=== PATIENT | male | born 1970 | race Hispanic/Latino ===

== ENCOUNTER 2017-04-30 11:00 | Emergency (ER) | payer MEDICAID ==
[2017-04-30 11:01] VITALS: BMI 26.6
[2017-04-30 11:22] VITALS: RESP 18; TEMP 98
[2017-04-30] MEDS ORDERED: Sodium Chloride 0.9% 1,000 ML IV STA (11:30)
[2017-04-30 12:02] LABS: BASO # 0.02 K/mm3 (0.0-2.0); BASO % 0.3 % (0.0-3.0); EOS # 0.1 (0.0-0.7); EOS % 1.7 % (1.5-5.0); GRAN # 5.16 (1.4-6.5); GRAN % 66.9 % (50.0-68.0); LYMPH % 25.4 % (22.0-35.0); MEAN CELL VOLUME 92.6 fl (80.0-105.0); MEAN CORPUSCULAR HEMOGLOBIN 32.2 pg (25.0-35.0); MEAN CORPUSCULAR HGB CONC 34.7 g/dl (31.0-37.0); MEAN PLATELET VOLUME 9.1 fl (7.0-11.0); MONO # 0.4 (0.1-0.6); MONO % 5.7 % (1.0-6.0); RBC 4.35 10^6/uL (3.5-6.1); RED CELL DISTRIBUTION WIDTH 12.8 % (11.5-14.5); WHITE BLOOD COUNT 7.7 10^3/ul (4.5-11.0)
[2017-04-30 12:08] LABS: ALB/GLOB RATIO 1.2 (1.1-1.8); ALBUMIN 3.8 g/dL (3.0-4.8); ALT/SGPT 28 U/L (7-56); AST/SGOT 20 U/L (17-59); BLOOD UREA NITROGEN 10 mg/dL (7-21); CALCIUM 9.2 mg/dL (8.4-10.5); GFR AFRICAN-AMERICAN > 60; GFR NON-AFRICAN AMERICAN > 60; LIPASE 37 U/L (23-300)
--- NOTE | 2017-04-30 12:44 | CT ---
PROCEDURE: CT Abdomen and Pelvis without intravenous contrast HISTORY: right flank pain COMPARISON: None. TECHNIQUE: Without contrast. Contrast Dose: Without contrast Radiation dose: Total exam DLP = Total exam DLP = 245 mGy-cm. This CT exam was performed using one or more of the following dose reduction techniques: Automated exposure control, adjustment of the mA and/or kV according to patient size, and/or use of iterative reconstruction technique. FINDINGS: LOWER THORAX: Unremarkable. LIVER: Unremarkable. No gross lesion or ductal dilatation. GALLBLADDER AND BILE DUCTS: Unremarkable. PANCREAS: Unremarkable. No gross lesion or ductal dilatation. SPLEEN: Unremarkable. ADRENALS: Unremarkable. No mass. KIDNEYS AND URETERS: Unremarkable. No hydronephrosis. No solid mass. VASCULATURE: Unremarkable. No aortic aneurysm. BOWEL: Unremarkable. No obstruction. No gross mural thickening. APPENDIX: Unremarkable. Normal appendix. PERITONEUM: There is a small amount of fluid in the pelvis. Etiology and significance uncertain LYMPH NODES: Unremarkable. No enlarged lymph nodes. BLADDER: Unremarkable. REPRODUCTIVE: Unremarkable. BONES: There is a pectus deformity of the lower sternum on the right OTHER FINDINGS: None. IMPRESSION: No acute intra-abdominal findings
[2017-04-30 13:29] VITALS: BP 128/76; PULSE 58; O2SAT 100
--- NOTE | 2017-04-30 15:17 | ED PDOC ---
Arrival/HPI - General Chief Complaint: Back Pain Time Seen by Provider: 04/30/17 11:30 Historian: Patient - History of Present Illness Narrative History of Present Illness (Text): 04/30/17 15:17 A 47 year old male presents to the emergency department complaining of persistent lower back pain for 3 weeks. Patient notes mild nausea and a few episodes of non-bilious non-bloody vomiting for the past 3-4 days. Patient reports he was seen by his PMD for same complaints and had a negative work up. Patient denies any recent trauma, injury, fever, chills, appetite changes, diarrhea, abdominal pain, urinary symptoms. chest pain, shortness of breath or any other complaints. Time/Duration: Other (3 weeks) Symptom Course: Unchanged Quality: Other Context: Home Past Medical History - Provider Review Nursing Documentation Reviewed: Yes - Cardiac Hx Cardiac Disorders: No - Pulmonary Hx Respiratory Disorders: No - Neurological Hx Neurological Disorder: No - HEENT Hx HEENT Disorder: Yes - Renal Hx Renal Disorder: No - Endocrine/Metabolic Hx Endocrine Disorders: No - Hematological/Oncological Hx Blood Disorders: No - Integumentary Hx Dermatological Disorder: No - Musculoskeletal/Rheumatological Hx Musculoskeletal Disorders: No - Gastrointestinal Hx Gastrointestinal Disorders: No - Genitourinary/Gynecological Hx Genitourinary Disorders: No - Psychiatric Hx Psychophysiologic Disorder: No Hx Substance Use: No - Anesthesia Hx Anesthesia: No Hx Anesthesia Reactions: No Hx Malignant Hyperthermia: No Family/Social History - Physician Review Nursing Documentation Reviewed: Yes Family/Social History: No Known Family HX Smoking Status: Light Smoker < 10 Cigarettes Daily Hx Alcohol Use: No Hx Substance Use: No Allergies/Home Meds Allergies/Adverse Reactions: Allergies No Known Allergies Allergy (Verified 09/20/14 11:28) Review of Systems - Physician Review All systems were reviewed & negative as marked: Yes - Review of Systems Constitutional: absent: Fevers, Night Sweats Respiratory: absent: SOB Cardiovascular: absent: Chest Pain Gastrointestinal: Nausea, Vomiting. absent: Abdominal Pain, Diarrhea, Appetite Changes Genitourinary Male: absent: Dysuria, Frequency, Hematuria Musculoskeletal: Back Pain Physical Exam Vital Signs Reviewed: Yes Vital Signs Temp Pulse Resp BP Pulse Ox 04/30/17 13:27 58 L 18 128/76 100 04/30/17 11:20 98.0 F 65 18 105/68 97 Temperature: Afebrile Blood Pressure: Normal Pulse: Regular Respiratory Rate: Normal Appearance: Positive for: Well-Appearing, Non-Toxic, Comfortable Pain Distress: None Mental Status: Positive for: Alert and Oriented X 3 - Systems Exam Head: Present: Atraumatic, Normocephalic Pupils: Present: PERRL Extroacular Muscles: Present: EOMI Conjunctiva: Present: Normal Mouth: Present: Moist Mucous Membranes Neck: Present: Normal Range of Motion Respiratory/Chest: Present: Clear to Auscultation, Good Air Exchange. No: Respiratory Distress, Accessory Muscle Use Cardiovascular: Present: Regular Rate and Rhythm, Normal S1, S2. No: Murmurs Abdomen: Present: Normal Bowel Sounds. No: Tenderness, Distention, Peritoneal Signs Back: Present: Normal Inspection. No: Midline Tenderness, Paraspinal Tenderness , Pain with Leg Raise Upper Extremity: Present: Normal Inspection, Normal ROM, NORMAL PULSES. No: Cyanosis, Edema Lower Extremity: Present: Normal Inspection, NORMAL PULSES, Normal ROM. No: Edema, CALF TENDERNESS Neurological: Present: GCS=15, CN II-XII Intact, Speech Normal Skin: Present: Warm, Dry, Normal Color. No: Rashes Psychiatric: Present: Alert, Oriented x 3, Normal Insight, Normal Concentration Medical Decision Making ED Course and Treatment: 04/30/17 15:17 Impression: A 47 year old male with lower back pain. Patient notes nausea and vomiting. Differential Diagnosis included but are not limited to: Back pain Plan: -- Abdomen and pelvis CT -- Labs -- Urinalysis -- Toradol and IV fluids -- Reassess and disposition Progress Notes: Report Date : 04/30/2017 12:43:06 PROCEDURE: CT Abdomen and Pelvis without intravenous contrast Dictator : Austen Doll MD IMPRESSION: No acute intra-abdominal findings On re-evaluation, patient feels better and is in no acute distress. I have discussed the results and plan with the patient, who expresses understanding. Patient in agreement with plan to be discharged home. Patient is stable for discharge. Patient was instructed to follow up with physician or return if symptoms worsen or new concerning symptoms arise. - Lab Interpretations Lab Results: 04/30/17 11:45 04/30/17 11:45 Lab Results 04/30/17 11:45: Sodium 141, Potassium 4.2, Chloride 104, Carbon Dioxide 29, Anion Gap 13, BUN 10, Creatinine 0.7 L, Est GFR ( Amer) > 60, Est GFR ( Non-Af Amer) > 60, Random Glucose 97, Calcium 9.2, Total Bilirubin 0.4, AST 20, ALT 28, Alkaline Phosphatase 59, Total Protein 6.8, Albumin 3.8, Globulin 3.0, Albumin/Globulin Ratio 1.2, Lipase 37 04/30/17 11:45: WBC 7.7, RBC 4.35, Hgb 14.0, Hct 40.3 L, MCV 92.6, MCH 32.2, MCHC 34.7, RDW 12.8, Plt Count 253, MPV 9.1, Gran % 66.9, Lymph % (Auto) 25.4, [place] % (Auto) 5.7, Eos % (Auto) 1.7, Baso % (Auto) 0.3, Gran # 5.16, Lymph # ( Auto) 2.0, [place] # (Auto) 0.4, Eos # (Auto) 0.1, Baso # (Auto) 0.02 I have reviewed the lab results: Yes - RAD Interpretation Radiology Orders: 04/30/17 11:30 ABD & PELVIS W/O PO OR IV CONT [CT] Stat - Medication Orders Current Medication Orders: Discontinued Medications Sodium Chloride (Sodium Chloride 0.9%) 1,000 mls @ 1,000 mls/hr IV .Q1H STA Stop: 04/30/17 12:29 Last Admin: 04/30/17 11:42 Dose: 1,000 mls/hr eMAR Start Stop Document 04/30/17 11:42 EQ (Rec: 04/30/17 11:43 EQ [id number]) Intravenous Solution Start Date 04/30/17 Start Time 11:43 Ketorolac Tromethamine (Toradol) 30 mg IVP STAT STA Stop: 04/30/17 11:31 Last Admin: 04/30/17 11:43 Dose: 30 mg MAR Pain Assessment Document 04/30/17 11:43 EQ (Rec: 04/30/17 11:43 EQ [id number]) Pain Reassessment Is this a pain reassessment? No Sleep Is patient sleeping during reassessment? No Presence of Pain Presence of Pain Yes IVP Administration Document 04/30/17 11:43 EQ (Rec: 04/30/17 11:43 EQ [id number]) Charges for Administration # of IVP Administrations 1 - Scribe Statement The provider has reviewed the documentation as recorded by the Cathy Puga Provider Scribe Attestation: All medical record entries made by the Scribe were at my direction and personally dictated by me. I have reviewed the chart and agree that the record accurately reflects my personal performance of the history, physical exam, medical decision making, and the department course for this patient. I have also personally directed, reviewed, and agree with the discharge instructions and disposition. Disposition/Present on Arrival - Present on Arrival Any Indicators Present on Arrival: No History of DVT/PE: No History of Uncontrolled Diabetes: No Urinary Catheter: No History of Decub. Ulcer: No History Surgical Site Infection Following: None - Disposition Have Diagnosis and Disposition been Completed?: Yes Diagnosis: Low back pain Disposition: HOME/ ROUTINE Disposition Time: 12:50 (0) Condition: GOOD Discharge Instructions (ExitCare): Low Back Pain in Adults Additional Instructions: Thank you for letting us take care of you today. The emergency medical care you received today was directed at your acute symptoms. If you were prescribed any medication, please fill it and take as directed. It may take several days for your symptoms to resolve. Return to the Emergency Department if your symptoms worsen, do not improve, or if you have any other problems. Please contact your doctor or call one of the physicians/clinics you have been referred to that are listed on the Patient Visit Information form that is included in your discharge packet. Bring any paperwork you were given at discharge with you along with any medications you are taking to your follow up visit. Our treatment cannot replace ongoing medical care by a primary care provider (PCP) outside of the emergency department. Thank you for allowing the [facility] team to be part of your care today. Continue taking the tramadol that you already have. Follow up with your primary doctor in 2-3 days for re-evaluation and further management. Prescriptions: Cyclobenzaprine [Cyclobenzaprine HCl] 10 mg PO Q8 PRN #20 tab PRN Reason: Muscle Spasm Referrals: Jordan Magana Jr., MD [Primary Care Provider] - Follow up with primary Forms: [employer] ([place] Islander)
== END 2017-04-30 13:27 | disposition home or self-care (01) ==
LOC: ED 11:00
DX: M54.5 Low back pain (principal); F17.210 Nicotine dependence, cigarettes, uncomplicated
CPT/HCPCS: 74176; 80053; 83690; 85025; 96374; 99283; J1885; J7040

== ENCOUNTER 2017-07-08 11:50 | Inpatient (IN) | payer MEDICAID ==
[2017-07-08] MEDS: Albuterol-Ipratrop 3 mg / 0.5 (3 ml) UD IH SCH ×5 (12:15→23:29)
[2017-07-08] MEDS ORDERED: Sodium Chloride 0.9% 500 ML IV STA (12:16)
--- NOTE | 2017-07-08 12:27 | ED PDOC ---
Arrival/HPI - General Chief Complaint: Shortness Of Breath Time Seen by Provider: 07/08/17 11:58 Historian: Patient - History of Present Illness Narrative History of Present Illness (Text): 07/08/17 12:16 A 47 year old male, with no significant past medical history, who is Korean- speaking, presents to the emergency department complaining of shortness of breath. Patient was seen by PMD Dr. Jordan Magana today and sent patient to the ER cough and shortness of breath for several days. Patient reports also experiencing productive cough with yellowish-green sputum, associated with chest pain, and weight loss of 30 lbs. Patient denies any fever, nausea, vomiting, diarrhea, or any other complaints at this time. Denies leg pain or swelling. Denies pleuritic pain. Denies calf pain. PMD: Dr. Jordan Magana Past Medical History - Provider Review Nursing Documentation Reviewed: Yes - Cardiac Hx Cardiac Disorders: No - Pulmonary Hx Respiratory Disorders: No - Neurological Hx Neurological Disorder: No - HEENT Hx HEENT Disorder: Yes - Renal Hx Renal Disorder: No - Endocrine/Metabolic Hx Endocrine Disorders: No - Hematological/Oncological Hx Blood Disorders: No - Integumentary Hx Dermatological Disorder: No - Musculoskeletal/Rheumatological Hx Musculoskeletal Disorders: No - Gastrointestinal Hx Gastrointestinal Disorders: No - Genitourinary/Gynecological Hx Genitourinary Disorders: No - Psychiatric Hx Psychophysiologic Disorder: No Hx Substance Use: Yes (previous heroin) - Surgical History Other/Comment: cyst to right arm removed - Anesthesia Hx Anesthesia: No Hx Anesthesia Reactions: No Hx Malignant Hyperthermia: No Family/Social History - Physician Review Nursing Documentation Reviewed: Yes Family/Social History: No Known Family HX Smoking Status: Light Smoker < 10 Cigarettes Daily Hx Alcohol Use: No Hx Substance Use: Yes (previous heroin) Allergies/Home Meds Allergies/Adverse Reactions: Allergies No Known Allergies Allergy (Verified 09/20/14 11:28) Review of Systems - Review of Systems Constitutional: Weight Change (weight loss of 30 lbs). absent: Fevers Eyes: absent: Vision Changes ENT: absent: Hearing Changes, Sore Throat, Rhinorrhea Respiratory: SOB, Cough (productive), Sputum (yellowish-green), Wheezing Cardiovascular: Chest Pain (associated with cough), BOLDEN. absent: Edema Gastrointestinal: absent: Diarrhea, Nausea, Vomiting Musculoskeletal: absent: Back Pain Skin: absent: Rash Neurological: absent: Headache, Dizziness Endocrine: absent: Polyuria Hemo/Lymphatic: absent: Easy Bleeding Physical Exam - Physical Exam Narrative Physical Exam (Text): Head: Atraumatic. Normocephalic. Eyes: PERRL. EOMI. Conjunctivae are not pale. ENT: Mucous membranes are moist and intact. Oropharynx is clear and symmetric. No pharyngeal erythema or exudates. Neck: Supple. Full ROM. No JVD. No lymphadenopathy. Cardiovascular: Regular rate. Regular rhythm. No murmurs, rubs, or gallops. Distal pulses are 2+ and symmetric. Pulmonary/Chest: Bilateral expiratory wheezes with rhonchi. Tachypneic. No accessory muscle usage. Abdominal: Soft and non-distended. There is no tenderness. No rebound, guarding, or rigidity. No organomegaly. Good bowel sounds. Back: No CVA tenderness. Extremities: No edema. No cyanosis. No clubbing. Full range of motion in all extremities. No calf tenderness. Skin: Skin is warm and dry. No petechiae. No purpura. Neurological: Alert, awake, and oriented to person, place, time, and situation. Normal speech. Motor and sensory exam intact. Psychiatric: Good eye contact. Normal interaction, affect, and behavior. Vital Signs Reviewed: Yes Vital Signs Temp Pulse Resp BP Pulse Ox 07/08/17 14:15 92 H 17 117/75 92 L 07/08/17 12:07 99.1 F 88 18 101/64 91 L Temperature: Afebrile Blood Pressure: Normal Pulse: Regular Respiratory Rate: Tachypneic Appearance: Positive for: Uncomfortable Pain Distress: Mild Mental Status: Positive for: Alert and Oriented X 3 Medical Decision Making ED Course and Treatment: 07/08/17 12:19 Impression: 47 year old male with shortness of breath, productive cough with yellowish-green sputum, associated with chest pain. Physical exam shows patient appears tachypneic; bilateral rhonchi with wheezing. Differential Diagnosis included but are not limited to: Asthma Exacerbation vs. Pneumonia vs. Bronchitis. Plan: -- EKG -- Chest X-ray -- Angio Chest CT -- Labs -- Duoneb -- IV Fluids -- Blood Culture -- Urine Culture -- Urinalysis -- Influenza A B Stat -- Nasal Cannula -- Venous Blood Gas -- Reassess and disposition Progress Notes: History and physical performed in presence of environmental permitting specialist. Patient reports smoking one pack a day for several years. Denies prior history of asthma. Denies prior admissions or intubations. He is hypoxia with bilateral wheezing. Nebulizers ordered. CXR ordered for persistent cough and hypoxia. 07/08/2017 13:00 Chest X-ray IMPRESSION: No active disease. Dictator: Austen Duque MD Re-exam, no improvement in wheezing or hypoxia. CT angio ordered. 07/08/2017 15:[address] IMPRESSION: Unremarkable CT pulmonary angiogram. No pulmonary embolus. Dictator: Austen Duque MD There is question of possible infiltrate on CT. IV anbiotics ordered. Will continue nebulizers, add solumedrol, continue antibiotics. Patient agreeable to admission, updated on condition with patient's permission. - Lab Interpretations Lab Results: 07/08/17 12:32 07/08/17 14:00 Lab Results 07/08/17 14:00: Sodium 139, Chloride 102, Potassium 3.8, Carbon Dioxide 26, Anion Gap 14, BUN 11, Creatinine 0.7 L, Est GFR ( Amer) > 60, Est GFR ( Non-Af Amer) > 60, Random Glucose 101, Calcium 8.5, Total Bilirubin 0.4, AST 22 , ALT 28, Alkaline Phosphatase 72, Lactate Dehydrogenase 443, Total Creatine Kinase 94, Troponin I < 0.01, NT-Pro-B Natriuret Pep 73.3, Total Protein 7.4, Albumin 4.3, Globulin 3.1, Albumin/Globulin Ratio 1.4 07/08/17 13:17: Urine Color Yellow, Urine Appearance Sl cloudy, Urine pH 6.0, Ur Specific [place] 1.015, Urine Protein Negative, Urine Glucose (UA) Negative, Urine Ketones Negative, Urine Blood Moderate H, Urine Nitrate Negative, Urine Bilirubin Negative, Urine Urobilinogen 0.2, Ur Leukocyte Esterase Negative, Urine RBC 0 - 2, Urine WBC Negative 07/08/17 12:32: pO2 49, VBG pH 7.38, VBG pCO2 48.0, VBG HCO3 28.4 H, VBG Total CO2 29.9 H, VBG O2 Sat (Calc) 88.3 H, VBG Base Excess 2.5 H, VBG Potassium 4.1, Sodium 136.0, Chloride 103.0, Glucose 106, Lactate 1.0, FiO2 21.0, Venous Blood Potassium 4.1 07/08/17 12:32: PT 12.6 H, INR 1.09 H, APTT 35.7 07/08/17 12:32: Influenza Typ A,B (EIA) Negative for flu a/b 07/08/17 12:32: WBC 8.9, RBC 4.45, Hgb 14.4, Hct 40.9 L, MCV 91.9, MCH 32.4, MCHC 35.2, RDW 13.9, Plt Count 189, MPV 9.8, Gran % 71.9 H, Lymph % (Auto) 19.4 L, [place] % (Auto) 6.8 H, Eos % (Auto) 1.7, Baso % (Auto) 0.2, Gran # 6.38, Lymph # (Auto) 1.7, [place] # (Auto) 0.6, Eos # (Auto) 0.2, Baso # (Auto) 0.02 07/08/17 12:26: POC Glucose (mg/dL) 111 H I have reviewed the lab results: Yes - RAD Interpretation Radiology Orders: 07/08/17 12:14 CHEST PORTABLE [RAD] Stat 07/08/17 13:13 ANGIO CHEST PE PROTOCOL [CT] Stat - EKG Interpretation EKG Interpretation (Text): EKG at 12:48 normal sinus rhythm with incomplete right bundle branch block Interpreted by ED Physician: Yes Type: 12 lead EKG - Medication Orders Current Medication Orders: Discontinued Medications Albuterol/Ipratropium (Duoneb 3 Mg/0.5 Mg (3 Ml) Ud) 3 ml IH Q15M JERMAINE Stop: 07/08/17 12:46 Last Admin: 07/08/17 12:40 Dose: 3 ml Albuterol/Ipratropium (Duoneb 3 Mg/0.5 Mg (3 Ml) Ud) 3 ml IH STAT STA Stop: 07/08/17 14:11 Last Admin: 07/08/17 14:16 Dose: 3 ml Sodium Chloride (Sodium Chloride 0.9%) 500 mls @ 1,000 mls/hr IV .Q30M STA Stop: 07/08/17 12:45 Last Admin: 07/08/17 12:31 Dose: 1,000 mls/hr eMAR Start Stop Document 07/08/17 12:31 SF (Rec: 07/08/17 12:31 SF [id number]) Intravenous Solution Start Date 07/08/17 Start Time 12:31 End Date 07/08/17 End time 13:01 Total Infusion Time 30 Ceftriaxone Sodium (Rocephin 1 Gram Ivpb) 1 gm in 100 mls @ 200 mls/hr IVPB ONCE STA PRN Reason: Protocol Stop: 07/08/17 13:23 Last Admin: 07/08/17 14:19 Dose: 200 mls/hr eMAR Start Stop Document 07/08/17 14:19 SF (Rec: 07/08/17 14:19 SF [id number]) Intravenous Solution Start Date 07/08/17 Start Time 14:19 End Date 07/08/17 End time 14:49 Total Infusion Time 30 Azithromycin (Zithromax 500mg In Ns) 500 mg in 250 mls @ 166.667 mls/hr IVPB STAT STA PRN Reason: Protocol Stop: 07/08/17 14:23 Last Admin: 07/08/17 15:38 Dose: 166.667 mls/hr eMAR Start Stop Document 07/08/17 15:38 MS (Rec: 07/08/17 15:39 MS [id number]) Intravenous Solution Start Date 07/08/17 Start Time 15:39 End Date 07/08/17 End time 17:09 Total Infusion Time 90 Methylprednisolone (Solu-Medrol) 125 mg IVP STAT STA Stop: 07/08/17 15:41 Last Admin: 07/08/17 16:33 Dose: 125 mg IVP Administration Document 07/08/17 16:33 MS (Rec: 07/08/17 16:35 MS [id number]) Charges for Administration # of IVP Administrations 1 - Scribe Statement The provider has reviewed the documentation as recorded by the Cathy Romero Provider Scribe Attestation: All medical record entries made by the Scribe were at my direction and personally dictated by me. I have reviewed the chart and agree that the record accurately reflects my personal performance of the history, physical exam, medical decision making, and the department course for this patient. I have also personally directed, reviewed, and agree with the discharge instructions and disposition. Disposition/Present on Arrival - Present on Arrival Any Indicators Present on Arrival: No History of DVT/PE: No History of Uncontrolled Diabetes: No Urinary Catheter: No History of Decub. Ulcer: No History Surgical Site Infection Following: None - Disposition Have Diagnosis and Disposition been Completed?: Yes Diagnosis: Acute asthma exacerbation Disposition: HOSPITALIZED Disposition Time: 14:00 Patient Plan: Admission, Telemetry Condition: SERIOUS Referrals: Jordan Magana Jr., MD [Primary Care Provider] - Follow up with primary Forms: [employer] (Irish)
[2017-07-08 12:38] LABS: BASO # 0.02 K/mm3 (0.0-2.0); BASO % 0.2 % (0.0-3.0); EOS # 0.2 (0.0-0.7); EOS % 1.7 % (1.5-5.0); GRAN # 6.38 (1.4-6.5); GRAN % 71.9 % (50.0-68.0); HEMOGLOBIN 14.4 g/dL (14.0-18.0); LYMPH # 1.7 (1.2-3.4); LYMPH % 19.4 % (22.0-35.0); MEAN CELL VOLUME 91.9 fl (80.0-105.0); MEAN CORPUSCULAR HEMOGLOBIN 32.4 pg (25.0-35.0); MEAN CORPUSCULAR HGB CONC 35.2 g/dl (31.0-37.0); MEAN PLATELET VOLUME 9.8 fl (7.0-11.0); MONO # 0.6 (0.1-0.6); MONO % 6.8 % (1.0-6.0); RBC 4.45 10^6/uL (3.5-6.1); RED CELL DISTRIBUTION WIDTH 13.9 % (11.5-14.5); WHITE BLOOD COUNT 8.9 10^3/ul (4.5-11.0)
[2017-07-08 12:39] LABS: VENOUS BLOOD GAS BASE EXCESS 2.5 mmol/L (0.0-2.0); VENOUS BLOOD GAS PO2 49 mm/Hg (30-55); VENOUS BLOOD PH 7.38 (7.32-7.43)
[2017-07-08] MEDS ORDERED: cefTRIAXone 1 gm 1 GM/100 ML BAG IVPB STA (12:54)
[2017-07-08] MEDS ORDERED: Azithromycin 500MG/NS 250ml 500 MG/250 ML BAG IVPB STA (12:54)
--- NOTE | 2017-07-08 13:03 | RAD ---
HISTORY: sob COMPARISON: No prior. FINDINGS: LUNGS: No active pulmonary disease. PLEURA: No significant pleural effusion identified, no pneumothorax apparent. CARDIOVASCULAR: Normal. OSSEOUS STRUCTURES: No significant abnormalities. VISUALIZED UPPER ABDOMEN: Normal. OTHER FINDINGS: None. IMPRESSION: No active disease.
[2017-07-08 13:06] LABS: INR 1.09 (0.93-1.08); PARTIAL THROMBOPLASTIN TIME 35.7 Seconds (25.1-36.5); PROTHROMBIN TIME 12.6 SECONDS (9.4-12.5)
[2017-07-08 13:25] LABS: URINE BILIRUBIN NEGATIVE (NEGATIVE); URINE BLOOD MODERATE (NEGATIVE); URINE GLUCOSE (UA) NEGATIVE (NEGATIVE); URINE LEUKOCYTE ESTERASE NEGATIVE Leu/uL (NEGATIVE); URINE PROTEIN NEGATIVE mg/dL (<30 mg/dL); URINE UROBILINOGEN 0.2 E.U./dL (<1 E.U./dL)
[2017-07-08 13:28] LABS: URINE APPEARANCE SL CLOUDY (CLEAR); URINE COLOR YELLOW (YELLOW)
[2017-07-08 13:42] LABS: URINE RBC 0 - 2 /hpf (0-2); URINE WBC NEGATIVE /hpf (0-6)
[2017-07-08] MEDS ORDERED: Iohexol 350 MG/100 ML VIAL ONE (14:03)
[2017-07-08] MEDS ORDERED: Albuterol-Ipratrop 3 mg / 0.5 (3 ml) UD IH STA (14:10)
[2017-07-08 14:20] LABS: ALB/GLOB RATIO 1.4 (1.1-1.8); ALBUMIN 4.3 g/dL (3.0-4.8); ALT/SGPT 28 U/L (7-56); AST/SGOT 22 U/L (17-59); BLOOD UREA NITROGEN 11 mg/dL (7-21); CALCIUM 8.5 mg/dL (8.4-10.5); GFR AFRICAN-AMERICAN > 60; GFR NON-AFRICAN AMERICAN > 60
[2017-07-08 14:30] LABS: B-TYPE NATRIURETIC PEPTIDE 73.3 pg/mL (0-450); TROPONIN I < 0.01 ng/mL
--- NOTE | 2017-07-08 15:02 | CT ---
PROCEDURE: CT Chest with contrast (Pulmonary Angiogram) HISTORY: r/o PE COMPARISON: None available. TECHNIQUE: Axial computed tomography images were obtained of the chest in the pulmonary arterial phase of enhancement. Coronal and sagittal reformatted images were created and reviewed. Intravenous contrast dose: 100 cc of Omni 350 Radiation dose: Total exam DLP = 366 mGy-cm. This CT exam was performed using one or more of the following dose reduction techniques: Automated exposure control, adjustment of the mA and/or kV according to patient size, and/or use of iterative reconstruction technique. FINDINGS: PULMONARY ARTERIES: Unremarkable. No pulmonary embolism. AORTA: No acute findings. No thoracic aortic aneurysm. LUNGS: There is a minimal linear infiltrate or scar at the left lung base. PLEURAL SPACES: Unremarkable. No effusion or pneuomothorax. HEART: Unremarkable. No cardiomegaly. No significant pericardial effusion. LYMPH NODES: There is mild hilar and mediastinal adenopathy BONES, CHEST WALL: Unremarkable. No fracture or destructive lesion OTHER FINDINGS: Unremarkable. IMPRESSION: Unremarkable CT pulmonary angiogram. No pulmonary embolus.
--- NOTE | 2017-07-08 16:55 | CP.PCM.HP ---
<Tone Gonsalves - Last Filed: 07/08/17 18:33> History of Present Illness - History of Present Illness History of Present Illness: 47 year old algerian speaking male with past medical history of hyperlipidemia presents with 2 days of productive cough and SOB. Patient states cough began 2 days ago and he was coughing up yellowish green sputum. Along with the cough he states his chest hurts when he is coughing. He went to see his PMD Dr. Magana today who advised the patient to come into the emergency room. Patient has not taken any medication at home for the cough or SOB. Patient states he had a fever at home. Patient also admits to have losing 30 pounds unintentionally past several months. Patient denies abdominal pain, nausea, vomiting, sick contacts, recent travel or any other complaints at this time. PMD: Jordan Magana PMH: HLD PSH: cyst to right arm removed Allergies: denies Meds: denies Social: 2 pack a day smoker, denies alcohol or illicit drug use Family: says mother from "smoking cigarretes" Present on Admission - Present on Admission Any Indicators Present on Admission: No Review of Systems - Constitutional Constitutional: Weight Loss. absent: Chills, Fever - Cardiovascular Cardiovascular: Dyspnea. absent: Chest Pain, Irregular Heart Rhythm - Respiratory Respiratory: Cough, Excessive Mucous Production, Pain with Coughing - Gastrointestinal Gastrointestinal: absent: Abdominal Pain, Nausea, Vomiting - Musculoskeletal Musculoskeletal: absent: Arthralgias Past Patient History - Past Medical History & Family History Past Medical History?: Yes - Past Social History Smoking Status: Light Smoker < 10 Cigarettes Daily - CARDIAC Hx Cardiac Disorders: No - PULMONARY Hx Respiratory Disorders: No - NEUROLOGICAL Hx Neurological Disorder: No - HEENT Hx HEENT Problems: Yes - RENAL Hx Chronic Kidney Disease: No - ENDOCRINE/METABOLIC Hx Endocrine Disorders: No - HEMATOLOGICAL/ONCOLOGICAL Hx Blood Disorders: No - INTEGUMENTARY Hx Dermatological Problems: No - MUSCULOSKELETAL/RHEUMATOLOGICAL Hx Musculoskeletal Disorders: No - GASTROINTESTINAL Hx Gastrointestinal Disorders: No - GENITOURINARY/GYNECOLOGICAL Hx Genitourinary Disorders: No - PSYCHIATRIC Hx Psychophysiologic Disorder: No Hx Substance Use: Yes (previous heroin) - SURGICAL HISTORY Other/Comment: cyst to right arm removed - ANESTHESIA Hx Anesthesia: No Hx Anesthesia Reactions: No Hx Malignant Hyperthermia: No Meds Allergies/Adverse Reactions: Allergies Allergy/AdvReac Type Severity Reaction Status Date / Time No Known Allergies Allergy Verified 09/20/14 11:28 Physical Exam - Constitutional Appears: Non-toxic, No Acute Distress - Head Exam Head Exam: ATRAUMATIC, NORMAL INSPECTION, NORMOCEPHALIC Additional comments: right ear has hearing device - Eye Exam Eye Exam: Normal appearance - ENT Exam ENT Exam: Mucous Membranes Moist - Respiratory Exam Respiratory Exam: Rhonchi, Wheezes - Cardiovascular Exam Cardiovascular Exam: REGULAR RHYTHM, +S1, +S2 - GI/Abdominal Exam GI & Abdominal Exam: Soft. absent: Tenderness - Extremities Exam Extremities exam: Negative for: pedal edema - Neurological Exam Neurological exam: Alert, Oriented x3 Results - Vital Signs Recent Vital Signs: Last Vital Signs Temp 99.1 F 07/08/17 12:07 Pulse 92 H 07/08/17 14:15 Resp 17 07/08/17 14:15 BP 117/75 07/08/17 14:15 Pulse Ox 92 L 07/08/17 14:15 - Labs Result Diagrams: 07/08/17 12:32 07/08/17 14:00 Assessment & Plan - Assessment and Plan (Free Text) Assessment: 47 year old algerian speaking male with past medical history of hyperlipidemia presents with 2 days of productive cough and SOB. CT showed minimal linear infiltrate, being treated for bronchitis exacerbation with underlying possible pneumonia. Plan: 1. Bronchitis exacerbation with underlying possible pneumonia (CAP) -EKG pending official read -chest xray: no active pulmonary disease -CT Chest: minimal linear infiltrate or scar at left lung base -rapid flu negative -Solumedrol 40 BID -Duonebs scheduled and PRN -oxygen PRN -Rocephin and Azithromycin -procal pending -legionella antigen and strep pneumo antigen pending Prophylaxis DVT: heparin SC GI: Protonix <Sweetie Lyn - Last Filed: 07/09/17 16:04> Results - Vital Signs Recent Vital Signs: Last Vital Signs Temp 98.4 F 07/09/17 12:00 Pulse 88 07/09/17 12:00 Resp 20 07/09/17 12:00 BP 106/62 07/09/17 12:00 Pulse Ox 92 L 07/09/17 06:00 - Labs Result Diagrams: 07/09/17 06:30 07/09/17 06:30 Labs: Laboratory Results - last 24 hr 0507/09/17 07/09/17 06:30 06:30 06:30 WBC 8.7 RBC 4.45 Hgb 14.1 Hct 40.2 L MCV 90.3 MCH 31.7 MCHC 35.1 RDW 13.7 Plt Count 214 MPV 9.8 Gran % 86.3 H Lymph % (Auto) 10.6 L [place] % (Auto) 2.9 Eos % (Auto) 0.0 L Baso % (Auto) 0.2 Gran # 7.52 H Lymph # (Auto) 0.9 L [place] # (Auto) 0.3 Eos # (Auto) 0.0 Baso # (Auto) 0.02 Sodium 142 Potassium 4.1 Chloride 104 Carbon Dioxide 24 Anion Gap 18 BUN 15 Creatinine 0.6 L Est GFR ( Amer) > 60 Est GFR (Non-Af Amer) > 60 Random Glucose 154 H Calcium 9.2 Total Bilirubin 0.3 AST 22 ALT 23 Alkaline Phosphatase 73 Total Protein 7.8 Albumin 4.4 Globulin 3.4 Albumin/Globulin Ratio 1.3 Procalcitonin < 0.05 L Attending/Attestation - Attestation I have personally seen and examined this patient.: Yes I have fully participated in the care of the patient.: Yes I have reviewed all pertinent clinical information: Yes Notes (Text): 07/09/17 16:01 Medical record note made by the resident after discussion with my direction and input after the patient was personally seen and examined by me. I have reviewed the chart and agree that the record accurately reflects by personal performance of the history, physical exam, data review, and medical decision-making, in the course for the patient. I have also personally directed the plan of care. 47 year old male with past medical history of hyperlipidemia, chronic smoking is admitted with cough.dyspnea due to acute Bronchitis, may have Pneumonia . We will start patient on Steroid/Neb.Rocephin and Zithromax.We will follow up culture.We will also check procalcitonin level. Management plan was discussed in detail with patient and family. Smoking cessation counseling was done. Education was provided
[2017-07-08] MEDS ORDERED: Albuterol-Ipratrop 3 mg / 0.5 (3 ml) UD IH PRN (17:01)
[2017-07-08] MEDS ORDERED: guaiFENesin DM 100 mg-10 mg/5 ml UD PO PRN (18:26)
--- NOTE | 2017-07-08 21:39 | CARD ---
APPROVED REPORT EKG Measurement Heart [id number] <Conclusion> Normal sinus rhythm Incomplete right bundle branch block Borderline ECG
[2017-07-08] MEDS: MethylPREDNISolone 40 mg Vial IVP SCH (22:10)
[2017-07-08 23:25] VITALS: RESP 20; BMI 19.3
[2017-07-09] MEDS: Albuterol-Ipratrop 3 mg / 0.5 (3 ml) UD IH SCH ×3 (04:34→10:59)
[2017-07-09] MEDS ORDERED: Pantoprazole 40 mg EC Tab PO SCH (06:00)
[2017-07-09 07:12] VITALS: O2SAT 92
[2017-07-09 07:15] LABS: BASO # 0.02 K/mm3 (0.0-2.0); BASO % 0.2 % (0.0-3.0); GRAN # 7.52 (1.4-6.5); GRAN % 86.3 % (50.0-68.0); HEMOGLOBIN 14.1 g/dL (14.0-18.0); LYMPH # 0.9 (1.2-3.4); LYMPH % 10.6 % (22.0-35.0); MEAN CELL VOLUME 90.3 fl (80.0-105.0); MEAN CORPUSCULAR HEMOGLOBIN 31.7 pg (25.0-35.0); MEAN CORPUSCULAR HGB CONC 35.1 g/dl (31.0-37.0); MEAN PLATELET VOLUME 9.8 fl (7.0-11.0); MONO # 0.3 (0.1-0.6); MONO % 2.9 % (1.0-6.0); RBC 4.45 10^6/uL (3.5-6.1); RED CELL DISTRIBUTION WIDTH 13.7 % (11.5-14.5); WHITE BLOOD COUNT 8.7 10^3/ul (4.5-11.0)
[2017-07-09 07:45] LABS: ALB/GLOB RATIO 1.3 (1.1-1.8); ALBUMIN 4.4 g/dL (3.0-4.8); ALT/SGPT 23 U/L (7-56); AST/SGOT 22 U/L (17-59); BLOOD UREA NITROGEN 15 mg/dL (7-21); CALCIUM 9.2 mg/dL (8.4-10.5); GFR AFRICAN-AMERICAN > 60; GFR NON-AFRICAN AMERICAN > 60
[2017-07-09] MEDS ORDERED: Azithromycin 500MG/NS 250ml 500 MG/250 ML BAG IVPB SCH (10:00)
[2017-07-09] MEDS ORDERED: cefTRIAXone 1 gm 1 GM/100 ML BAG IVPB SCH (10:00)
[2017-07-09] MEDS: MethylPREDNISolone 40 mg Vial IVP SCH (10:28)
[2017-07-09] MEDS ORDERED: Albuterol-Ipratrop 3 mg / 0.5 (3 ml) UD IH STA ×2 (10:33→12:56)
[2017-07-09 12:11] VITALS: BP 106/62; TEMP 98.4
--- NOTE | 2017-07-09 14:55 | CP.PCM.PCO ---
<Tone Gonsalves - Last Filed: 07/09/17 14:55> Physician Communication Note - Physician Communication Note Physician Communication Note: Please educated patient on how to use albuterol inhaler <Sweetie Lyn - Last Filed: 07/09/17 16:05> Attending/Attestation - Attestation I have personally seen and examined this patient.: Yes I have fully participated in the care of the patient.: Yes I have reviewed all pertinent clinical information: Yes
[2017-07-09 16:05] VITALS: PULSE 87
--- NOTE | 2017-07-10 06:49 | CP.PCM.DIS ---
<Tone Gonsalves - Last Filed: 07/10/17 14:17> Provider - Provider Date of Admission: 07/08/17 15:40 Attending physician: Sweetie Lyn MD Primary care physician: Jordan Magana Jr, MD Time Spent in preparation of Discharge (in minutes): 70 Hospital Course - Lab Results Lab Results: Micro Results 07/09/17 07:00 Sputum Gram Stain - Final Most Recent Lab Values WBC 8.7 10^3/ul (4.5-11.0) 07/09/17 06:30 RBC 4.45 10^6/uL (3.5-6.1) 07/09/17 06:30 Hgb 14.1 g/dL (14.0-18.0) 07/09/17 06:30 Hct 40.2 % (42.0-52.0) L 07/09/17 06:30 MCV 90.3 fl (80.0-105.0) 07/09/17 06:30 MCH 31.7 pg (25.0-35.0) 07/09/17 06:30 MCHC 35.1 g/dl (31.0-37.0) 07/09/17 06:30 RDW 13.7 % (11.5-14.5) 07/09/17 06:30 Plt Count 214 10^3/uL (120.0-450.0) 07/09/17 06:30 MPV 9.8 fl (7.0-11.0) 07/09/17 06:30 Gran % 86.3 % (50.0-68.0) H 07/09/17 06:30 Lymph % (Auto) 10.6 % (22.0-35.0) L 07/09/17 06:30 [place] % (Auto) 2.9 % (1.0-6.0) 07/09/17 06:30 Eos % (Auto) 0.0 % (1.5-5.0) L 07/09/17 06:30 Baso % (Auto) 0.2 % (0.0-3.0) 07/09/17 06:30 Gran # 7.52 (1.4-6.5) H 07/09/17 06:30 Lymph # (Auto) 0.9 (1.2-3.4) L 07/09/17 06:30 [place] # (Auto) 0.3 (0.1-0.6) 07/09/17 06:30 Eos # (Auto) 0.0 (0.0-0.7) 07/09/17 06:30 Baso # (Auto) 0.02 K/mm3 (0.0-2.0) 07/09/17 06:30 PT 12.6 SECONDS (9.4-12.5) H 07/08/17 12:32 INR 1.09 (0.93-1.08) H 07/08/17 12:32 APTT 35.7 Seconds (25.1-36.5) 07/08/17 12:32 pO2 49 mm/Hg (30-55) 07/08/17 12:32 VBG pH 7.38 (7.32-7.43) 07/08/17 12:32 VBG pCO2 48.0 (40-60) 07/08/17 12:32 VBG HCO3 28.4 mmol/l (21-28) H 07/08/17 12:32 VBG Total CO2 29.9 mmol.L (22-28) H 07/08/17 12:32 VBG O2 Sat (Calc) 88.3 % (40-65) H 07/08/17 12:32 VBG Base Excess 2.5 mmol/L (0.0-2.0) H 07/08/17 12:32 VBG Potassium 4.1 mmol/L (3.6-5.2) 07/08/17 12:32 Sodium 136.0 mmol/L (132-148) 07/08/17 12:32 Chloride 103.0 mmol/L (98-107) 07/08/17 12:32 Glucose 106 mg/dl (75-110) 07/08/17 12:32 Lactate 1.0 mmol/L (0.7-2.1) 07/08/17 12:32 FiO2 21.0 % 07/08/17 12:32 Sodium 142 mmol/L (132-148) 07/09/17 06:30 Potassium 4.1 mmol/L (3.6-5.0) 07/09/17 06:30 Chloride 104 mmol/L (98-107) 07/09/17 06:30 Carbon Dioxide 24 mmol/L (21-33) 07/09/17 06:30 Anion Gap 18 (10-20) 07/09/17 06:30 BUN 15 mg/dL (7-21) 07/09/17 06:30 Creatinine 0.6 mg/dl (0.8-1.5) L 07/09/17 06:30 Est GFR ( Amer) > 60 07/09/17 06:30 Est GFR (Non-Af Amer) > 60 07/09/17 06:30 POC Glucose (mg/dL) 111 mg/dL (65-110) H 07/08/17 12:26 Random Glucose 154 mg/dL (70-110) H 07/09/17 06:30 Calcium 9.2 mg/dL (8.4-10.5) 07/09/17 06:30 Total Bilirubin 0.3 mg/dL (0.2-1.3) 07/09/17 06:30 AST 22 U/L (17-59) 07/09/17 06:30 ALT 23 U/L (7-56) 07/09/17 06:30 Alkaline Phosphatase 73 U/L (38-126) 07/09/17 06:30 Lactate Dehydrogenase 443 U/L (333-699) 07/08/17 14:00 Total Creatine Kinase 94 U/L (35-230) 07/08/17 14:00 Troponin I < 0.01 ng/mL 07/08/17 14:00 NT-Pro-B Natriuret Pep 73.3 pg/mL (0-450) 07/08/17 14:00 Total Protein 7.8 g/dL (5.8-8.3) 07/09/17 06:30 Albumin 4.4 g/dL (3.0-4.8) 07/09/17 06:30 Globulin 3.4 gm/dL 07/09/17 06:30 Albumin/Globulin Ratio 1.3 (1.1-1.8) 07/09/17 06:30 Procalcitonin < 0.05 NG/ML (0.19-0.49) L 07/09/17 06:30 Venous Blood Potassium 4.1 mmol/L (3.6-5.2) 07/08/17 12:32 Urine Color Yellow (YELLOW) 07/08/17 13:17 Urine Appearance Sl cloudy (CLEAR) 07/08/17 13:17 Urine pH 6.0 (4.7-8.0) 07/08/17 13:17 Ur Specific [place] 1.015 (1.005-1.035) 07/08/17 13:17 Urine Protein Negative mg/dL (<30 mg/dL) 07/08/17 13:17 Urine Glucose (UA) Negative mg/dL (NEGATIVE) 07/08/17 13:17 Urine Ketones Negative mg/dL (NEGATIVE) 07/08/17 13:17 Urine Blood Moderate (NEGATIVE) H 07/08/17 13:17 Urine Nitrate Negative (NEGATIVE) 07/08/17 13:17 Urine Bilirubin Negative (NEGATIVE) 07/08/17 13:17 Urine Urobilinogen 0.2 E.U./dL (<1 E.U./dL) 07/08/17 13:17 Ur Leukocyte Esterase Negative Richard/uL (NEGATIVE) 07/08/17 13:17 Urine RBC 0 - 2 /hpf (0-2) 07/08/17 13:17 Urine WBC Negative /hpf (0-6) 07/08/17 13:17 Influenza Typ A,B (EIA) Negative for flu a/b (NEGATIVE) 07/08/17 12:32 Ur L.pneumophila Ag Negative (NEGATIVE) 07/09/17 11:01 - Hospital Course Hospital Course: 47 year old male with past medical history of hyperlipidemia, chronic smoking was admitted with cough and dyspnea due to acute Bronchitis, and possible pneumonia. We started him on Steroid and nebulizers along with Rocephin and Zithromax. His breathing status improved and he was discharged home. Discharge Exam - Head Exam Head Exam: ATRAUMATIC, NORMAL INSPECTION, NORMOCEPHALIC - Eye Exam Eye Exam: EOMI, Normal appearance, PERRL - Respiratory Exam Respiratory Exam: NORMAL BREATHING PATTERN, UNREMARKABLE - Cardiovascular Exam Cardiovascular Exam: REGULAR RHYTHM, +S1, +S2 - Neurological Exam Neurological exam: Alert, Oriented x3 Discharge Plan - Discharge Medications Prescriptions: Albuterol HFA [Ventolin HFA 90 mcg/actuation (8 g)] 2 puff IH [id number] #1 inhaler Amoxicillin/Clavulanate [Augmentin 875 MG-125 MG] 1 tab PO Q12 #14 tab guaiFENesin/Dextromethorphan [Robitussin DM] 5 ml PO Q4H PRN #250 udc PRN Reason: Cough Prednisone See Taper PO DAILY #10 tab.ds.pk - Follow Up Plan Condition: SERIOUS Disposition: HOME/ ROUTINE Instructions: Asthma, Adult (DC) Additional Instructions: Please continue prednisone tablets for 40mg for first day, 30mg next day, 20mg next day then 10mg last day. Take antibiotic two times a day for 7 days. Please follow up with PMD for outpatient colonoscopy. Referrals: Jordan Magana Jr., MD [Primary Care Provider] - <Sweetie Lyn - Last Filed: 07/10/17 18:34> Provider - Provider Date of Admission: 07/08/17 15:40 Attending physician: Sweetie Lyn MD Primary care physician: Jordan Magana Jr, MD Time Spent in preparation of Discharge (in minutes): 35 Hospital Course - Lab Results Lab Results: Micro Results 07/09/17 07:00 Sputum Gram Stain - Final Most Recent Lab Values WBC 8.7 10^3/ul (4.5-11.0) 07/09/17 06:30 RBC 4.45 10^6/uL (3.5-6.1) 07/09/17 06:30 Hgb 14.1 g/dL (14.0-18.0) 07/09/17 06:30 Hct 40.2 % (42.0-52.0) L 07/09/17 06:30 MCV 90.3 fl (80.0-105.0) 07/09/17 06:30 MCH 31.7 pg (25.0-35.0) 07/09/17 06:30 MCHC 35.1 g/dl (31.0-37.0) 07/09/17 06:30 RDW 13.7 % (11.5-14.5) 07/09/17 06:30 Plt Count 214 10^3/uL (120.0-450.0) 07/09/17 06:30 MPV 9.8 fl (7.0-11.0) 07/09/17 06:30 Gran % 86.3 % (50.0-68.0) H 07/09/17 06:30 Lymph % (Auto) 10.6 % (22.0-35.0) L 07/09/17 06:30 [place] % (Auto) 2.9 % (1.0-6.0) 07/09/17 06:30 Eos % (Auto) 0.0 % (1.5-5.0) L 07/09/17 06:30 Baso % (Auto) 0.2 % (0.0-3.0) 07/09/17 06:30 Gran # 7.52 (1.4-6.5) H 07/09/17 06:30 Lymph # (Auto) 0.9 (1.2-3.4) L 07/09/17 06:30 [place] # (Auto) 0.3 (0.1-0.6) 07/09/17 06:30 Eos # (Auto) 0.0 (0.0-0.7) 07/09/17 06:30 Baso # (Auto) 0.02 K/mm3 (0.0-2.0) 07/09/17 06:30 PT 12.6 SECONDS (9.4-12.5) H 07/08/17 12:32 INR 1.09 (0.93-1.08) H 07/08/17 12:32 APTT 35.7 Seconds (25.1-36.5) 07/08/17 12:32 pO2 49 mm/Hg (30-55) 07/08/17 12:32 VBG pH 7.38 (7.32-7.43) 07/08/17 12:32 VBG pCO2 48.0 (40-60) 07/08/17 12:32 VBG HCO3 28.4 mmol/l (21-28) H 07/08/17 12:32 VBG Total CO2 29.9 mmol.L (22-28) H 07/08/17 12:32 VBG O2 Sat (Calc) 88.3 % (40-65) H 07/08/17 12:32 VBG Base Excess 2.5 mmol/L (0.0-2.0) H 07/08/17 12:32 VBG Potassium 4.1 mmol/L (3.6-5.2) 07/08/17 12:32 Sodium 136.0 mmol/L (132-148) 07/08/17 12:32 Chloride 103.0 mmol/L (98-107) 07/08/17 12:32 Glucose 106 mg/dl (75-110) 07/08/17 12:32 Lactate 1.0 mmol/L (0.7-2.1) 07/08/17 12:32 FiO2 21.0 % 07/08/17 12:32 Sodium 142 mmol/L (132-148) 07/09/17 06:30 Potassium 4.1 mmol/L (3.6-5.0) 07/09/17 06:30 Chloride 104 mmol/L (98-107) 07/09/17 06:30 Carbon Dioxide 24 mmol/L (21-33) 07/09/17 06:30 Anion Gap 18 (10-20) 07/09/17 06:30 BUN 15 mg/dL (7-21) 07/09/17 06:30 Creatinine 0.6 mg/dl (0.8-1.5) L 07/09/17 06:30 Est GFR ( Amer) > 60 07/09/17 06:30 Est GFR (Non-Af Amer) > 60 07/09/17 06:30 POC Glucose (mg/dL) 111 mg/dL (65-110) H 07/08/17 12:26 Random Glucose 154 mg/dL (70-110) H 07/09/17 06:30 Calcium 9.2 mg/dL (8.4-10.5) 07/09/17 06:30 Total Bilirubin 0.3 mg/dL (0.2-1.3) 07/09/17 06:30 AST 22 U/L (17-59) 07/09/17 06:30 ALT 23 U/L (7-56) 07/09/17 06:30 Alkaline Phosphatase 73 U/L (38-126) 07/09/17 06:30 Lactate Dehydrogenase 443 U/L (333-699) 07/08/17 14:00 Total Creatine Kinase 94 U/L (35-230) 07/08/17 14:00 Troponin I < 0.01 ng/mL 07/08/17 14:00 NT-Pro-B Natriuret Pep 73.3 pg/mL (0-450) 07/08/17 14:00 Total Protein 7.8 g/dL (5.8-8.3) 07/09/17 06:30 Albumin 4.4 g/dL (3.0-4.8) 07/09/17 06:30 Globulin 3.4 gm/dL 07/09/17 06:30 Albumin/Globulin Ratio 1.3 (1.1-1.8) 07/09/17 06:30 Procalcitonin < 0.05 NG/ML (0.19-0.49) L 07/09/17 06:30 Venous Blood Potassium 4.1 mmol/L (3.6-5.2) 07/08/17 12:32 Urine Color Yellow (YELLOW) 07/08/17 13:17 Urine Appearance Sl cloudy (CLEAR) 07/08/17 13:17 Urine pH 6.0 (4.7-8.0) 07/08/17 13:17 Ur Specific [place] 1.015 (1.005-1.035) 07/08/17 13:17 Urine Protein Negative mg/dL (<30 mg/dL) 07/08/17 13:17 Urine Glucose (UA) Negative mg/dL (NEGATIVE) 07/08/17 13:17 Urine Ketones Negative mg/dL (NEGATIVE) 07/08/17 13:17 Urine Blood Moderate (NEGATIVE) H 07/08/17 13:17 Urine Nitrate Negative (NEGATIVE) 07/08/17 13:17 Urine Bilirubin Negative (NEGATIVE) 07/08/17 13:17 Urine Urobilinogen 0.2 E.U./dL (<1 E.U./dL) 07/08/17 13:17 Ur Leukocyte Esterase Negative Richard/uL (NEGATIVE) 07/08/17 13:17 Urine RBC 0 - 2 /hpf (0-2) 07/08/17 13:17 Urine WBC Negative /hpf (0-6) 07/08/17 13:17 Influenza Typ A,B (EIA) Negative for flu a/b (NEGATIVE) 07/08/17 12:32 Ur L.pneumophila Ag Negative (NEGATIVE) 07/09/17 11:01 Attending/Attestation - Attestation I have fully participated in the care of the patient.: Yes I have reviewed all pertinent clinical information, including history, physical exam and plan: Yes Notes (Text): 07/10/17 18:31 Medical record note made by the resident after discussion with my direction and input after the patient was personally seen and examined by me. I have reviewed the chart and agree that the record accurately reflects by personal performance of the history, physical exam, data review, and medical decision-making, in the course for the patient. I have also personally directed the plan of care. 47 year old male with past medical history of hyperlipidemia, chronic smoking is admitted with cough.dyspnea due to acute Bronchitis . Patient has improved with Steroid/Neb and antibiotics. He will be discharged home on albuterol inhaler, tapering dose of Prednisone and Augmentin. Management plan was discussed in detail with patient and family. Smoking cessation counseling was done. Education was provided
== END 2017-07-09 16:05 | disposition home or self-care (01) | DRG 97 ==
LOC: ED 11:50 → ERH 15:40 → 2RSO 21:45
PROVIDERS: ADMIT Internal Medicine; ATTEND Internal Medicine
DX: J45.901 Unspecified asthma with (acute) exacerbation (principal); E78.5 Hyperlipidemia, unspecified; F17.210 Nicotine dependence, cigarettes, uncomplicated